=== PATIENT | male | born 1985 | race Caucasian/White ===

== ENCOUNTER 2017-11-03 13:45 | Emergency (ER) | payer MEDICAID ==
[~2017-11-03] VITALS: Ht 180.3 cm; Wt 86.0 kg
[2017-11-03] MEDS ORDERED: TETANUS AND DIPHTHERIA TOX/PF 0.5ML SYR (ADULT) IM ONE (15:15)
[2017-11-03] MEDS ORDERED: BACITRACIN ZINC OINT UDPKT TOP ONE (15:15)
[2017-11-03] MEDS ORDERED: TETANUS, DIPHTHERIA, PERTUSSIS VAC/PF 0.5ML (>7YR OLD) IM ONE (15:30)
[2017-11-03 16:45] VITALS: BP 129/77
== END 2017-11-03 17:02 | disposition home or self-care (01) ==
LOC: ER 14:12
DX: S61.204A Unspecified open wound of right ring finger without damage to nail, initial encounter (principal); F17.200 Nicotine dependence, unspecified, uncomplicated; W25.XXXA Contact with sharp glass, initial encounter; Y93.89 Activity, other specified; Y92.89 Other specified places as the place of occurrence of the external cause; Y99.8 Other external cause status
CPT/HCPCS: 73130; 90471; 90714; 90715; 99284